=== PATIENT | female | born 1990 | race Caucasian/White ===

== ENCOUNTER 2016-07-13 23:40 | Inpatient (IN) | payer SELFPAY ==
[~2016-07-13] VITALS: Ht 175.3 cm; Wt 80.7 kg
[2016-07-14 03:58] LABS: HEMOGLOBIN 10.3 gm/dl (12.3-15.3); RED BLOOD COUNT 4.09 M/UL (4.00-5.10); WHITE BLOOD COUNT 9.3 K/UL (4.5-11.0)
[2016-07-15 03:24] LABS: HEMOGLOBIN 9.1 gm/dl (12.3-15.3)
[2016-07-15] MEDS ORDERED: COLACE 100MG C100 MG PO (10:23)
== END 2016-07-15 12:05 | disposition home or self-care (01) | DRG 775 ==
LOC: GENOP 23:40 → OB 07-14 00:30
PROVIDERS: Obstetrics & Gynecology; ADMIT Obstetrics & Gynecology
DX: O99.02 Anemia complicating childbirth (principal); O70.0 First degree perineal laceration during delivery; Z3A.38 38 weeks gestation of pregnancy; Z37.0 Single live birth; Z23 Encounter for immunization
CPT/HCPCS: 36415; 81001; 82800; 85014; 85018; 85025; 90715; J2300; J2590; J3430; J7120